=== PATIENT | female | born 2005 | race African-American/Black ===

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

== ENCOUNTER 2024-04-07 20:26 | Emergency (ER) | payer OTHER ==
[~2024-04-07] VITALS: Ht 165.1 cm; Wt 55.5 kg
[~2024-04-07 20:26] MED LIST: AMOX500C2 PO; PERCT PO
[2024-04-07 21:24] VITALS: BP 101/61; PULSE 91; RESP 16; TEMP 98.5; O2SAT 99
== END 2024-04-07 23:51 | disposition left against medical advice (07) ==
LOC: EMS 20:26
DX: R51.9 Headache, unspecified (principal); R10.30 Lower abdominal pain, unspecified; Z53.21 Procedure and treatment not carried out due to patient leaving prior to being seen by health care provider